=== PATIENT | male | born 1980 | race American Indian/Alaskan Native ===

== ENCOUNTER 2018-01-12 08:25 | Emergency (ER) | payer SELFPAY ==
[2018-01-12 09:01] LABS: Basophils # (Auto) 0.1 K/mm3 (0.0-0.1); Basophils % (Auto) 0.6 % (0.0-1.8); Eosinophils % (Auto) 0.5 % (0.0-4.3); Hematocrit 40.1 % (35.5-45.6); Hemoglobin 13.4 gm/dl (11.8-15.2); Lymphocytes # (Auto) 1.2 K/mm3 (1.2-5.4); Lymphocytes % (Auto) 13.1 % (13.4-35.0); Mean Corpuscular HGB Conc 33 % (32-34); Mean Corpuscular Hemoglobin 32 pg (28-32); Mean Corpuscular Volume 96 fl (84-94); Monocytes # (Auto) 0.7 K/mm3 (0.0-0.8); Monocytes % (Auto) 7.1 % (0.0-7.3); Platelet Count 297 K/mm3 (140-440); Red Cell Distribution Width 13.6 % (13.2-15.2)
[2018-01-12 09:19] LABS: Alanine Aminotransferase 6 units/L (7-56); Albumin 4.3 g/dL (3.9-5); BUN/Creatinine Ratio 12; Blood Urea Nitrogen 16 mg/dL (9-20); Hemolysis Index 9
[2018-01-12] MEDS ORDERED: ALUM-MAG HYDROX-SIMETH 200-200-20MG/5ML PO ONE (13:13)
[2018-01-12] MEDS ORDERED: LIDOCAINE VISCOUS 2% PO ONE (13:13)
--- NOTE | 2018-01-12 13:18 | Emergency Department Report ---
Blank Doc - Documentation Documentation: 37-year-old male that presents with one day of progressive onset generalized abdominal pain that is worse in the left upper quadrant. Sharp in nature. No associated nausea or diarrhea. Had 1 episode of vomiting. Last BM yesterday. No history of abdominal surgeries. Patient states never had pain like this before. On focused exam, patient with generalized abdominal tenderness with voluntary guarding. Lab work is unremarkable. Urinalysis has not been collected. Patient is given a GI cocktail. Likely he will need a CT scan of his abdomen if GI cocktail feels resolved symptoms.
--- NOTE | 2018-01-12 13:37 | Emergency Department Report ---
ED Abdominal Pain HPI - General Chief Complaint: Abdominal Pain Stated Complaint: ABD PAIN Time Seen by Provider: 01/12/18 12:49 Source: patient Mode of arrival: Ambulatory Limitations: No Limitations - History of Present Illness Initial Comments: 37-year-old male that presents with one day of progressive onset generalized abdominal pain that is worse in the left upper quadrant. Sharp in nature. No associated nausea or diarrhea. Had 1 episode of vomiting. Last BM yesterday. No history of abdominal surgeries. Patient states never had pain like this before. Patient said that pain started after he was eating last night. Denies any fever or chills. Denies any back pain. Denies any urinary burning frequency or urgency. Denies any history of acid reflux. Denies any blood in vomitus. Pain is better with rest and worse with moving around. No medication taken for pain MD Complaint: abdominal pain (nausea and vomiting started last night) -: Last night Location: diffuse Radiation: none Migration to: no migration Severity scale (0 -10): 8 Quality: sharp Consistency: constant Improves With: rest Worsens With: movement Context: possible food poisoning Associated Symptoms: nausea, vomiting. denies: diarrhea, fever, chills, constipation, dysuria, hematemesis, hematochezia, melena, hematuria, anorexia, syncope Treatments Prior to Arrival: other (none) - Related Data Previous Rx's Medication Instructions Recorded Last Taken Type Cephalexin [Keflex] 500 mg PO Q8H 7 Days #21 capsule 01/12/18 Unknown Rx HYDROcodone/ACETAMINOPHEN [[place] 1 each PO Q6H PRN #10 tablet 01/12/18 Unknown Rx 5-325 Tablet] Promethazine [Phenergan TAB] 25 mg PO Q6HR PRN #12 tab 01/12/18 Unknown Rx Allergies Allergy/AdvReac Type Severity Reaction Status Date / Time No Known Allergies Allergy Unverified 01/12/18 08:46 ED Review of Systems ROS: Stated complaint: ABD PAIN Other details as noted in HPI Comment: All other systems reviewed and negative Constitutional: no symptoms reported ENT: denies: throat pain, congestion Respiratory: no symptoms reported Cardiovascular: denies: chest pain, palpitations, dyspnea on exertion, edema, syncope, paroxysmal nocturnal dyspnea Gastrointestinal: abdominal pain, nausea, vomiting. denies: diarrhea, constipation, hematemesis, melena, hematochezia Genitourinary: denies: urgency, dysuria, frequency, hematuria, discharge, testicular pain, testicular mass Musculoskeletal: denies: back pain, joint swelling, arthralgia, myalgia Skin: denies: rash Neurological: denies: headache, weakness, numbness, paresthesias, confusion, abnormal gait, vertigo ED Past Medical Hx - Past Medical History Previous Medical History?: No - Surgical History Past Surgical History?: Yes Additional Surgical History: right leg surgery - Family History Family history: hypertension - Social History Smoking Status: Current Every Day Smoker Substance Use Type: None - Medications Home Medications: Home Medications Medication Instructions Recorded Confirmed Last Taken Type Cephalexin [Keflex] 500 mg PO Q8H 7 Days #21 capsule 01/12/18 Unknown Rx HYDROcodone/ACETAMINOPHEN [[place] 1 each PO Q6H PRN #10 tablet 01/12/18 Unknown Rx 5-325 Tablet] Promethazine [Phenergan TAB] 25 mg PO Q6HR PRN #12 tab 01/12/18 Unknown Rx ED Physical Exam - General Limitations: No Limitations General appearance: alert, in no apparent distress - Head Head exam: Present: atraumatic, normocephalic, normal inspection - Eye Eye exam: Present: normal appearance, PERRL, EOMI Pupils: Present: normal accommodation - ENT ENT exam: Present: normal exam, normal orophraynx, mucous membranes moist - Neck Neck exam: Present: normal inspection, full ROM. Absent: tenderness, lymphadenopathy - Respiratory Respiratory exam: Present: normal lung sounds bilaterally. Absent: respiratory distress, chest wall tenderness - Cardiovascular Cardiovascular Exam: Present: regular rate, normal rhythm, normal heart sounds - GI/Abdominal GI/Abdominal exam: Present: soft, tenderness, guarding, normal bowel sounds. Absent: distended, rigid, organomegaly, mass, bruit, pulsatile mass, hernia - Extremities Exam Extremities exam: Present: normal inspection, full ROM, normal capillary refill , other (no clubbing, cyanosis or edema. +2 pulses to all extremities and no neurovascular compromise). Absent: tenderness, pedal edema, joint swelling, calf tenderness - Back Exam Back exam: Present: normal inspection, full ROM, CVA tenderness (R), CVA tenderness (L), other (ambulates without any difficulties). Absent: tenderness , muscle spasm, paraspinal tenderness, vertebral tenderness, rash noted - Neurological Exam Neurological exam: Present: alert, oriented X3, normal gait - Psychiatric Psychiatric exam: Present: normal affect, normal mood - Skin Skin exam: Present: warm, dry, intact, normal color. Absent: rash ED Course Vital Signs 01/12/18 01/12/18 08:46 14:44 Temperature 97.6 F 98.2 F Pulse Rate 71 79 Respiratory 16 18 Rate Blood Pressure 123/84 Blood Pressure 117/81 [Right] O2 Sat by Pulse 100 99 Oximetry - Reevaluation(s) Reevaluation #1: 01/12/18 16:07 Patient was given GI cocktail in the emergency room after screened by Dr. Sanches. He was given Maalox 15 mL by mouth and viscous lidocaine 10 mL by mouth. After reevaluation, patient is tolerating oral liquids well. Patient with minimal tenderness to his abdominal quadrants but urinalysis reflects large amount of blood and urine and also positive white blood cell. Patient with positive CVA tenderness. CT scan of the abdomen and pelvis to look for stones, by mouth challenge Rocephin 1 g IM. Reevaluation #2: 01/12/18 18:26 Patient is stable he was able to tolerate 4 cups of cranberry juice without any nausea or vomiting. He said his pain is better. CT scan shows left ureter stone. ED Medical Decision Making - Lab Data Result diagrams: 01/12/18 08:45 01/12/18 08:51 Lab Results 01/12/18 01/12/18 01/12/18 Range/Units 08:45 08:51 14:38 WBC 9.3 (4.5-11.0) K/mm3 RBC 4.20 (3.65-5.03) M/mm3 Hgb 13.4 (11.8-15.2) gm/dl Hct 40.1 (35.5-45.6) % MCV 96 H (84-94) fl MCH 32 (28-32) pg MCHC 33 (32-34) % RDW 13.6 (13.2-15.2) % Plt Count 297 (140-440) K/mm3 Lymph % (Auto) 13.1 L (13.4-35.0) % [place] % (Auto) 7.1 (0.0-7.3) % Eos % (Auto) 0.5 (0.0-4.3) % Baso % (Auto) 0.6 (0.0-1.8) % Lymph # 1.2 (1.2-5.4) K/mm3 [place] # 0.7 (0.0-0.8) K/mm3 Eos # 0.0 (0.0-0.4) K/mm3 Baso # 0.1 (0.0-0.1) K/mm3 Seg Neutrophils % 78.7 H (40.0-70.0) % Seg Neutrophils # 7.3 (1.8-7.7) K/mm3 Sodium 144 (137-145) mmol/L Potassium 4.3 (3.6-5.0) mmol/L Chloride 103.8 (98-107) mmol/L Carbon Dioxide 31 H (22-30) mmol/L Anion Gap 14 mmol/L BUN 16 (9-20) mg/dL Creatinine 1.3 (0.8-1.5) mg/dL Estimated GFR > 60 ml/min BUN/Creatinine Ratio 12 % Glucose 118 H (75-100) mg/dL Calcium 9.0 (8.4-10.2) mg/dL Total Bilirubin 0.20 (0.1-1.2) mg/dL AST 14 (5-40) units/L ALT 6 L (7-56) units/L Alkaline Phosphatase 96 (35-129) units/L Total Protein 7.2 (6.3-8.2) g/dL Albumin 4.3 (3.9-5) g/dL Albumin/Globulin Ratio 1.5 % Urine Color Yellow (Yellow) Urine Turbidity Clear (Clear) Urine pH 8.0 H (5.0-7.0) Ur Specific [place] 1.025 (1.003-1.030) Urine Protein 30 mg/dl (Negative) mg/dL Urine Glucose (UA) Neg (Negative) mg/dL Urine Ketones Neg (Negative) mg/dL Urine Blood Lg (Negative) Urine Nitrite Neg (Negative) Urine Bilirubin Neg (Negative) Urine Urobilinogen < 2.0 (<2.0) mg/dL Ur Leukocyte Esterase Neg (Negative) Urine WBC (Auto) 14.0 H (0.0-6.0) /HPF Urine RBC (Auto) > 182.0 (0.0-6.0) /HPF Hyaline Casts 1 /LPF Urine Mucus 2+ /HPF Urine Yeast (Budding) Few /HPF Urine culture sent and pending - Radiology Data X-ray of the abdomen and reveals patient with unremarkable abdomen. ED scan of the abdomen and pelvis revealed patient with 5 mm calculus in the left distal ureter causing moderate left hydroureteronephrosis.. - Medical Decision Making ED course: Patient here complaining of abdominal pain that started last night. He was seen by Dr. Sanches and worked up with labs and abdominal series. Lab work was stable except his urinalysis perfect urinary tract infection CBC and chemistry stable except for minimal abnormalities in some values. Patient had a large amount of blood in his urine therefore CT scan of the abdomen and pelvis was done without contrast to evaluate for stones. CT scan show patient with left distal ureter 5 mm stone causing moderate left hydroureteronephrosis. No renal calculi are seen. The right kidney is normal. Lymph nodes negative. Critical care attestation.: If time is entered above; I have spent that time in minutes in the direct care of this critically ill patient, excluding procedure time. ED Disposition Clinical Impression: Hydroureteronephrosis, Calculus of distal left ureter, Acute cystitis with hematuria Abdominal pain Qualifiers: Abdominal location: generalized Qualified Code(s): R10.84 - Generalized abdominal pain Nausea & vomiting Qualifiers: Vomiting type: unspecified Vomiting Intractability: non-intractable Qualified Code(s): R11.2 - Nausea with vomiting, unspecified Disposition: DC-01 TO HOME OR SELFCARE Is pt being admited?: No Does the pt Need Aspirin: No Condition: Stable Instructions: Renal Colic (ED), Hydronephrosis (ED), Urinary Tract Infection in Men (ED), Kidney Stones (ED), Acute Abdominal Pain (ED), Acute Nausea and Vomiting (ED) Additional Instructions: Please drink at least 3 L of water over the next 12 hours to flush your ureter and bladder out seeking flush stolen out of his system Take medication as prescribed. Please do not drive or operate heavy machinery while taking Phenergan and [place] as these medication causes drowsiness Please follow discharge instructions to continue on kidney stones. Follow-up with [facility], please call tomorrow to schedule an appointment. For further discharge instruction paperwork for details. If you develop, nausea vomiting, increasing pain, fever and/or chills, bleeding from penile area, she states the emergency room TIERA. Follow-up with [facility] for primary care since he did not have a primary care doctor. Prescriptions: Cephalexin [Keflex] 500 mg PO Q8H 7 Days #21 capsule HYDROcodone/ACETAMINOPHEN [[place] 5-325 Tablet] 1 each PO Q6H PRN #10 tablet PRN Reason: moderate to severe pain Promethazine [Phenergan TAB] 25 mg PO Q6HR PRN #12 tab PRN Reason: Nausea Referrals: [facility] [Outside] - 01/13/18 [facility] [Provider Group] - 01/13/18 Forms: Work/School Release Form(ED)
--- NOTE | 2018-01-12 14:05 | XRay Report ---
AP ABDOMEN: HISTORY: Generalized abdominal pain. The abdominal gas pattern is unremarkable. No masses or organomegaly is identified and there is no gross evidence of free air or fluid. No significant soft tissue calcifications are noted. IMPRESSION: Unremarkable abdomen.
[2018-01-12 14:55] LABS: Bilirubin,Urine NEG (Negative); Blood,Urine LG (Negative); Color,Urine Yellow (Yellow); Hyaline Casts,Urine 1 /LPF; Mucus,Urine 2+ /HPF; Urobilinogen,Urine < 2.0 mg/dL (<2.0)
[2018-01-12 14:56] LABS: RBC,Urine > 182.0 /HPF (0.0-6.0)
--- NOTE | 2018-01-12 17:57 | Cat Scan Report ---
FINAL REPORT EXAM: CT ABDOMEN PELVIS WO CON HISTORY: cva tenderness, hematuria, TECHNIQUE: CT of the abdomen and pelvis was performed without intravenous contrast. Reconstructions were included in the coronal and sagittal planes. PRIORS: None. FINDINGS: Lower thorax: The lung bases are clear. The visualized portions of the heart are normal. Liver: The liver is normal in attenuation. No intrahepatic biliary duct dilation. No focal hepatic lesions. Gallbladder/ biliary system: No cholelithiasis. The common bile duct appears nondilated. Spleen: No splenic lesions are seen. Pancreas: No pancreatic lesions are seen. No pancreatic duct dilation. Kidneys: There is a 5 millimeter calculus in the left distal ureter causing moderate left hydroureteronephrosis. No renal calculi are seen. The right kidney is normal. Adrenal glands: No adrenal masses. Vasculature: The abdominal aorta is nondilated. Lymph nodes: No enlarged lymph nodes are seen in the abdomen or pelvis. Bowel, mesentery, peritoneum: No bowel obstruction. No free fluid or free air. The appendix was not seen. No colonic diverticulosis. No bowel wall thickening. Urinary bladder: No filling defects are seen. Pelvis: Small amount of free fluid is seen in the pelvis. Abdominal wall: No abdominal wall hernia or other subcutaneous findings. Bones: Chronic deformity of the right iliac wing may be related to prior trauma. Partial sacralization of the left aspect of the L5 vertebral body is noted. IMPRESSION: 5 millimeter calculus in the left distal ureter causing moderate left hydroureteronephrosis.
[2018-01-12 18:42] VITALS: BP 110/75
== END 2018-01-12 19:20 | disposition home or self-care (01) ==
LOC: ED 08:25
DX: N13.30 Unspecified hydronephrosis (principal); N30.01 Acute cystitis with hematuria; F17.200 Nicotine dependence, unspecified, uncomplicated
CPT/HCPCS: 36415; 74018; 74176; 80053; 81001; 85025; 87086

== ENCOUNTER 2018-01-30 13:09 | Emergency (ER) | payer SELFPAY ==
[2018-01-30] MEDS ORDERED: TORADOL IV ONE (14:21)
[2018-01-30] MEDS ORDERED: NACL 0.9% 1000 ML 1,000 ML IV ONE (14:21)
[2018-01-30 14:43] LABS: Basophils % (Auto) 0.6 % (0.0-1.8); Eosinophils # (Auto) 0.1 K/mm3 (0.0-0.4); Eosinophils % (Auto) 0.8 % (0.0-4.3); Hematocrit 40.1 % (35.5-45.6); Hemoglobin 13.5 gm/dl (11.8-15.2); Lymphocytes # (Auto) 1.5 K/mm3 (1.2-5.4); Lymphocytes % (Auto) 19.8 % (13.4-35.0); Mean Corpuscular HGB Conc 34 % (32-34); Mean Corpuscular Hemoglobin 32 pg (28-32); Mean Corpuscular Volume 94 fl (84-94); Monocytes # (Auto) 0.8 K/mm3 (0.0-0.8); Monocytes % (Auto) 10.5 % (0.0-7.3); Platelet Count 298 K/mm3 (140-440); Red Blood Count 4.26 M/mm3 (3.65-5.03); Red Cell Distribution Width 13.9 % (13.2-15.2)
[2018-01-30 15:03] LABS: Alanine Aminotransferase 9 units/L (7-56); Albumin 4.1 g/dL (3.9-5); BUN/Creatinine Ratio 14; Blood Urea Nitrogen 15 mg/dL (9-20); Calcium 9.1 mg/dL (8.4-10.2); Hemolysis Index 5; Lipase 11 units/L (13-60)
--- NOTE | 2018-01-30 15:14 | Cat Scan Report ---
FINAL REPORT PROCEDURE: CT ABDOMEN PELVIS WO CON TECHNIQUE: Computerized axial tomography of the abdomen and pelvis was performed without intravenous contrast. This study is performed without intravascular contrast material and its sensitivity for abdominal and pelvic pathology, including neoplasms, inflammation, abscess, free fluid, thrombosis, arterial dissection and infarction, is reduced compared with a contrast enhanced study. HISTORY: left flank pain, vomiting, recent kidney stone COMPARISON: 01/12/2018 FINDINGS: Visualized lower thorax: No significant abnormality. Liver: Normal size and attenuation. Spleen: Normal size and attenuation. Gallbladder and biliary system: Normal. Pancreas: Normal. Adrenals: Normal. Kidneys: There is mild to moderate left hydroureteronephrosis. There is a 5 millimeter calculus in the left pelvis, favored to be within the distal left ureter rather than an adjacent phlebolith. Numerous bilateral pelvic phleboliths are also present. GI tract: No bowel obstruction or acute inflammation is seen. The appendix is not fully visualized, however the visualized portions appear normal in caliber. Lymph nodes and mesentery: Normal. Vasculature: Normal. Bladder: Normal. Reproductive organs: Normal. Peritoneum: No free fluid. Musculoskeletal structures: No significant abnormality. Other: None. IMPRESSION: There is mild to moderate left hydroureteronephrosis. There is a 5 millimeter calculus in the left pelvis, favored to be within the distal left ureter rather than an adjacent phlebolith. This is not significantly changed in position compared to the prior study. Consider further evaluation with CT urogram prior to intervention to ensure that this is intraureteral rather than an adjacent phlebolith.
--- NOTE | 2018-01-30 16:19 | Emergency Department Report ---
ED Abdominal Pain HPI - General Chief Complaint: Abdominal Pain Stated Complaint: LEFT FLANK PAIN Time Seen by Provider: 01/30/18 14:22 Source: patient Mode of arrival: Ambulatory Limitations: No Limitations - History of Present Illness Initial Comments: This is a 37-year-old male nontoxic, well nourished in appearance, no acute signs of distress presents to the ED with c/o of left sided flank pain x3 weeks. Patient stated he was diagnosed a kidney stone on the 15 of January and was referred to follow-up with a polishing machine operator helper but patient stated he did not follow up. Patient stated that symptoms of pain has resolved and returned yesterday. Patient stated has been taking Keflex that was prescribed. Patient denies any radiation of pain. Patient describes pain as aching with level of 8/10. Patient denies any urinary symptoms. Patient denies any abdominal pain, nausea, vomiting , chest pain, shortness of breathe, fever, chills, headache, or stiff neck. Patient stated had episode of 2 vomiting after taking medications but otherwise denies any vomiting currently. Patient denies any allergies or significant PMH. MD Complaint: flank pain -: week(s) (3) Location: L flank Radiation: none Migration to: no migration Severity: mild Severity scale (0 -10): 8 Quality: aching Consistency: constant Improves With: nothing Worsens With: nothing Associated Symptoms: denies other symptoms. denies: nausea, vomiting, diarrhea , fever, chills, constipation, dysuria, hematemesis, hematochezia, melena, hematuria, anorexia, syncope - Related Data Previous Rx's Medication Instructions Recorded Last Taken Type Cephalexin [Keflex] 500 mg PO Q8H 7 Days #21 capsule 01/12/18 Unknown Rx HYDROcodone/ACETAMINOPHEN [[place] 1 each PO Q6H PRN #10 tablet 01/12/18 Unknown Rx 5-325 Tablet] Promethazine [Phenergan TAB] 25 mg PO Q6HR PRN #12 tab 01/12/18 Unknown Rx Ketorolac [Toradol] 10 mg PO Q6H PRN #20 tablet 01/30/18 Unknown Rx Tamsulosin [Flomax] 0.4 mg PO QDAY #7 cap 01/30/18 Unknown Rx Allergies Allergy/AdvReac Type Severity Reaction Status Date / Time No Known Allergies Allergy Unverified 01/12/18 08:46 ED Review of Systems ROS: Stated complaint: LEFT FLANK PAIN Other details as noted in HPI Constitutional: denies: chills, fever Eyes: denies: eye pain, eye discharge, vision change ENT: denies: ear pain, throat pain Respiratory: denies: cough, shortness of breath, wheezing Cardiovascular: denies: chest pain, palpitations Endocrine: no symptoms reported Gastrointestinal: denies: abdominal pain, nausea, diarrhea Genitourinary: denies: urgency, dysuria Musculoskeletal: denies: back pain, joint swelling, arthralgia Skin: denies: rash, lesions Neurological: denies: headache, weakness, paresthesias Psychiatric: denies: anxiety, depression Hematological/Lymphatic: denies: easy bleeding, easy bruising ED Past Medical Hx - Past Medical History Previous Medical History?: No - Surgical History Additional Surgical History: right leg surgery - Social History Smoking Status: Current Every Day Smoker Substance Use Type: None - Medications Home Medications: Home Medications Medication Instructions Recorded Confirmed Last Taken Type Cephalexin [Keflex] 500 mg PO Q8H 7 Days #21 capsule 01/12/18 Unknown Rx HYDROcodone/ACETAMINOPHEN [[place] 1 each PO Q6H PRN #10 tablet 01/12/18 Unknown Rx 5-325 Tablet] Promethazine [Phenergan TAB] 25 mg PO Q6HR PRN #12 tab 01/12/18 Unknown Rx Ketorolac [Toradol] 10 mg PO Q6H PRN #20 tablet 01/30/18 Unknown Rx Tamsulosin [Flomax] 0.4 mg PO QDAY #7 cap 01/30/18 Unknown Rx ED Physical Exam - General Limitations: No Limitations General appearance: alert, in no apparent distress - Head Head exam: Present: atraumatic, normocephalic - Eye Eye exam: Present: normal appearance Pupils: Present: normal accommodation - ENT ENT exam: Present: normal exam, mucous membranes moist - Neck Neck exam: Present: normal inspection, full ROM. Absent: tenderness, meningismus, lymphadenopathy - Respiratory Respiratory exam: Present: normal lung sounds bilaterally. Absent: respiratory distress, wheezes, rales, rhonchi, stridor, chest wall tenderness, accessory muscle use, decreased breath sounds, prolonged expiratory - Cardiovascular Cardiovascular Exam: Present: regular rate, normal rhythm, normal heart sounds. Absent: irregular rhythm, systolic murmur, diastolic murmur, rubs, gallop - GI/Abdominal GI/Abdominal exam: Present: soft, normal bowel sounds. Absent: distended, tenderness, guarding, rebound, rigid, diminished bowel sounds, hyperactive bowel sounds, hypoactive bowel sounds, mass, bruit, pulsatile mass - Rectal Rectal exam: Present: deferred - Extremities Exam Extremities exam: Present: normal inspection, full ROM, normal capillary refill. Absent: tenderness - Back Exam Back exam: Present: normal inspection, full ROM. Absent: tenderness, CVA tenderness (R), CVA tenderness (L), paraspinal tenderness, vertebral tenderness , rash noted - Neurological Exam Neurological exam: Present: alert, oriented X3, normal gait - Psychiatric Psychiatric exam: Present: normal affect, normal mood - Skin Skin exam: Present: warm, dry, intact, normal color. Absent: rash ED Course Vital Signs 01/30/18 01/30/18 13:17 13:23 Temperature 98.2 F Pulse Rate 66 Respiratory 16 Rate Blood Pressure 118/67 [Right] O2 Sat by Pulse 100 Oximetry - Reevaluation(s) Reevaluation #1: 01/30/18 16:21 Patient is speaking in full sentences with no signs of distress noted. - Consultations Consultation #1: 01/30/18 16:21 Patient has been consulted with Dr. Esteban about patient history, physical exam and agrees to ED plan of care and discharge plan of care. ED Medical Decision Making - Lab Data Result diagrams: 01/30/18 14:33 01/30/18 14:33 - Medical Decision Making This is a 37-year-old male that presents with left hydroureteronephrosis with 5mm calculus. Patient is stable and was examined by me. Patient was discussed with Dr. Esteban and agrees to the ED plan of care and discharge. CT of abdomen obtained and dictated by the radiologist. Patient is notified of the xray report with no questions noted by the patient. UA obtained. Labs obtained with no significant changes. Patient is discharged with flomax and toradol PO. Patient does not have any abdominal pain or distension. Normal urinary output as per patient. Patient was instructed to Follow-up with a primary care/ polishing machine operator helper doctor in 2-3 days or if symptoms worsen and continue return to emergency room as soon as possible. At time of discharge, the patient does not seem toxic or ill in appearance. No acute signs of distress noted. Patient agrees to discharge treatment plan of care. No further questions noted by the patient. Critical care attestation.: If time is entered above; I have spent that time in minutes in the direct care of this critically ill patient, excluding procedure time. ED Disposition Clinical Impression: Hydroureteronephrosis, Renal calculus Disposition: TO HOME OR SELFCARE Is pt being admited?: No Does the pt Need Aspirin: No Condition: Stable Instructions: Kidney Stones (ED), Ketorolac (By mouth), Tamsulosin (By mouth) Additional Instructions: Follow-up with a primary care/polishing machine operator helper doctor in 2-3 days or if symptoms worsen and continue return to emergency room as soon as possible. Prescriptions: Ketorolac [Toradol] 10 mg PO Q6H PRN #20 tablet PRN Reason: Pain Tamsulosin [Flomax] 0.4 mg PO QDAY #7 cap Referrals: PRIMARY CAREMD [Primary Care Provider] - 3-5 Days NIA TRUJILLO MD [Staff Physician] - 3-5 Days SHAUNA SEGOVIA MD [Staff Physician] - 3-[address] [facility] [Outside] - 3-5 Days [facility] [Outside] - 3-5 Days Forms: Work/School Release Form(ED)
[2018-01-30 17:00] LABS: Bacteria,Urine 1+ /HPF (Negative); Bilirubin,Urine NEG (Negative); Blood,Urine MOD (Negative); Color,Urine Yellow (Yellow); Mucus,Urine 1+ /HPF; Protein,Urine <15 mg/dL mg/dL (Negative); Urobilinogen,Urine < 2.0 mg/dL (<2.0)
[2018-01-30 17:46] VITALS: BP 120/70
== END 2018-01-30 17:44 | disposition home or self-care (01) ==
LOC: ED 13:09
DX: N13.30 Unspecified hydronephrosis (principal); F17.200 Nicotine dependence, unspecified, uncomplicated
CPT/HCPCS: 36415; 74176; 80053; 81001; 83690; 85025; 87086; 96361; 96374; 99284; J1885; J7030

== ENCOUNTER 2018-01-30 20:55 | Emergency (ER) | payer SELFPAY ==
[2018-01-30 21:11] VITALS: BP 107/72
--- NOTE | 2018-01-30 22:01 | Emergency Department Report ---
Chief Complaint: Extremity Injury, Lower Stated Complaint: RT LEG PAIN Time Seen by Provider: 01/30/18 21:59 - HPI History of Present Illness: 37 her afternoon [place] male recently discharged approximately 1-1/2 hours ago comes back stating that his right leg is vibrating. This is been going on since 2003. Patient is was discharged with pain medication. This is a chronic issue. - ROS Review of Systems: Patient alert and oriented sleeping in the fast track waiting room no acute distress. - Exam Vital Signs: Vital Signs 01/30/18 01/30/18 21:04 21:41 Temperature 97.4 F L 97.4 F L Pulse Rate 77 69 Respiratory 18 18 Rate Blood Pressure 107/72 107/72 O2 Sat by Pulse 100 99 Oximetry MSE screening note: Focused history and physical exam performed. Due to findings the following was ordered: Patient has a nonemergency screening done. Discussed the patient he's been placed on Toradol for pain. He needs to continue with that and follow up with primary care provider. ED Disposition for MSE Condition: Stable
== END 2018-01-30 21:59 | disposition left against medical advice (07) ==
LOC: ED 20:55
DX: M79.605 Pain in left leg (principal)
CPT/HCPCS: 99282